=== PATIENT | male | born 1940 | race Caucasian/White ===

== ENCOUNTER 2021-03-18 20:00 | Outpatient (CLI) | payer MEDICARE, OTHER, SELFPAY | END 2021-03-18 20:01 | disposition home or self-care (01) | LOC: SLEEP 03-19 08:55 | PROVIDERS: Family Provider Nurse Practitioner Family; PCP Nurse Practitioner Family; Visit Provider Family Medicine | DX: R06.83 Snoring (principal); R53.83 Other fatigue; G47.33 Obstructive sleep apnea (adult) (pediatric); I48.91 Unspecified atrial fibrillation | CPT/HCPCS: 95811 ==

== ENCOUNTER 2021-09-30 10:35 | Inpatient (IN) | payer MEDICARE, OTHER, SELFPAY ==
[2021-09-30] VITALS (12 sets, daily range): BP systolic 131–168; BP diastolic 76–98; PULSE 75–94; RESP 15–24; TEMP 36.5–37.4; O2SAT 92–99
[2021-09-30 12:16] LABS: Basophils # 0.1 10^3/uL (0.0-0.1); Basophils % 0.4 %; Eosinophils # 0.2 10^3/uL (0.0-0.8); Eosinophils % 1.3 %; Hematocrit 50.1 % (42.0-52.0); Hemoglobin 16.3 g/dL (11.7-16.6); Lymphocytes # 1.6 10^3/uL (0.8-4.8); Mean Corpuscular HGB Conc 32.5 g/dL (30.0-36.0); Mean Corpuscular Hemoglobin 28.8 pg (28.0-34.0); Mean Corpuscular Volume 88.5 fl (80-94); Mean Platelet Volume 10.6 fL (7.4-10.4); Monocytes # 1.3 10^3/uL (0.2-0.9); Monocytes % 8.5 %; Neutrophils % 79.4 %; Nucleated Red Blood Cells % 0 %; Platelet Count 195 10^3/cmm (130-400); Red Blood Count 5.66 10^6/uL (4.1-5.3); Red Cell Distribution Width 12.2 % (12.1-15.1); White Blood Count 15.8 10^3/uL (4.0-10.0)
[2021-09-30 12:43] LABS: Alanine Aminotransferase 11 U/L (0-41); Albumin Level 4.2 g/dL (3.5-5.2); Alkaline Phosphatase 33 IU/L (40-130); Anion Gap 18.6 (5-19); Aspartate Amino Transferase 15 U/L (0-40); Blood Urea Nitrogen 13 mg/dL (8-23); Calcium 8.9 mg/dL (8.5-10.5); Carbon Dioxide 23 mmol/L (22-29); Chloride 101 mmol/L (98-107); Globulin 3.2 g/dL (1.3-4.6); Glucose 93 mg/dL (65-115); Lipase 24 U/L (13-60); Osmolality Calculated 286 mOsm/kg (285-295); Potassium 4.6 mmol/L (3.5-5.1); Sodium 138 mmol/L (136-145); Total Bilirubin 0.7 mg/dL (0.15-1.2); Total Protein 7.4 g/dL (6.6-8.7)
--- NOTE | 2021-09-30 12:53 | XR_ITS ---
WS: [id number] Exam: XR KUB portable [id number] Date/Time of Exam: 09/30/2021 12:53 PM Reason For Exam: abd pain No bowel obstruction or free air. Small amount of gas in both large and small bowel loops. Organ salma ins are obscured. Hardware in the lumbosacral spine. Partially visualized right hip replacement. XR/XR KUB portable [id number] IMPRESSION: 1. No acute abdominal finding.
--- NOTE | 2021-09-30 13:14 | CT_ITS ---
WS: [id number] Exam: CT abdomen pelvis w con* [id number] Date/Time of Exam: 09/30/2021 2:12 PM Reason For Exam: abd pain DLP: 2026.[address] scans at [facility] use at least one of these dose optimization techniques: automated e xposure control; mA and/or kV adjustment per patient size (includes targeted exams where dose is matc hed to clinical indication); or iterative reconstruction. Dependent changes in the lower lung zones. The liver, gallbladder, spleen and pancreas are unremarkab le. Small hiatal hernia. The stomach is otherwise unremarkable. Normal adrenal glands. 2 mm nonobstru cting stone in the left kidney. 7 cm right renal cyst. Subcentimeter left renal cyst. No renal obstru ction seen. The abdominal aorta is normal in caliber. The portal vein and IVC are patent. An inflamma tory mass with several loculated fluid collections noted along the inferior margin of the cecum suspi cious for acute appendicitis. The largest loculation is about 1.7 cm. No sign of free air or obvious perforation. Small bowel loops are normal in caliber. Moderate amount stool in the remaining colon. No free air. N o lymphadenopathy in the abdomen or pelvis. Intact urinary bladder. Postoperative changes in the pros pathak gland most likely secondary to TURP. Fat filled bilateral inguinal hernias. Right-sided total hi p replacement. Lumbar fusion of the L4-5 level with hardware. No destructive bone lesions are seen. CT/CT abdomen pelvis w con* [id number] IMPRESSION: 1. Inflammatory mass with several small fluid loculations identified along the inferior margin of the cecum suspicious for acute appendicitis. Fluid loculatio ns are probably small periappendiceal abscesses. No free air identified. 2. 7 cm right renal cyst. 2 mm nonobstructing stone in the left kidney. Small b ilateral inguinal hernias. Additional chronic nonacute findings. Findings were discussed by phone with Dr. Lee, the attending ER physician at 3:00 PM 09/30/2021.
--- NOTE | 2021-09-30 13:27 | W.ED.ABDPA2 ---
HPI - Abdominal Pain General: Chief Complaint: Abdominal Pain Stated Complaint: ABD PAIN Time Seen by Provider: 09/30/21 12:37 History of Present Illness: HPI narrative: 81-year-old male presents emergency room complaining of abdominal pain. His abdominal pain nausea. He has constipation week ago he took several bottles of mag citrate about 3 days ago had a large bowel movement felt things had improved. Over the last 24 to 36 hours patient had worsening abdominal pain became much worse yesterday through today when he arrived here. Denies any medication melena hematemesis coffee-ground emesis denies any dysuria urgency or frequency. History of hypertension atrial fibrillation he is on Xarelto. MD elicited complaint: abdominal pain Pertinent past history: constipation Onset (ago): week(s) (3) Pain Consistency: intermittent Location: Diffuse Severity: mild Quality: cramping Radiation: none Migration to: no migration Exacerbating factors: nothing Associated Symptoms: Reports bloating, constipation, GI cramping, nausea and poor appetite; Denies anorexia, belching, change in bowel habits, change in stool character, chills, coffee ground emesis, diarrhea, dyspepsia, dysuria, excessive flatus, fever(s), heartburn, hematochezia, hematuria, hematemesis, fecal incontinence, loose stools, melena, syncope and vomiting Review of Systems Const: Denies: fever(s) or chills ENMT: Denies: throat pain, ear or mastoid pain, nasal discharge or nasal congestion Card: Denies: syncope Resp: Denies: dyspnea, productive cough or non-productive cough GI: Reports: nausea, constipation, bloating and GI cramping; Denies: vomiting, hematemesis, coffee ground emesis, heartburn, diarrhea, belching, excessive flatus, fecal incontinence, change in bowel habits, change in stool character, hematochezia or melena : Denies: dysuria or hematuria Skin/Breast: Denies: rash or pruritus PFSH ED PFSH: Social History Smoking and tobacco status: never smoked Second hand smoke exposure: No Alcohol intake: never Desire information about alcohol rehabilitation?: No Desire information about substance/drug rehabilitation?: No History of recent travel: No Physical Exam Const: COMMON NORMALS: no acute distress GENERAL APPEARANCE: cooperative and comfortable ORIENTATION/CONSCIOUSNESS: Yes awake, Yes oriented to person, Yes oriented to place and Yes oriented to time HENMT: COMMON NORMALS: normocephalic, atraumatic, hearing grossly normal bilaterally, external ears normal, EAC's normal, TM's normal bilaterally, Normal nasal mucous membranes and turbinates present, moist oral mucous membranes and oropharynx normal HEAD & SCALP: normocephalic and atraumatic NOSE: Normal nasal mucous membranes and turbinates present EXTERNAL EAR: Yes external ears normal EXTERNAL AUDITORY CANAL: EAC's normal TYMPANIC MEMBRANE: TM's normal bilaterally Eye: COMMON NORMALS: Equal, round and reactive pupils present, EOMs intact bilaterally, conjunctivae normal and no scleral icterus CONJUNCTIVA: Yes conjunctivae normal PUPIL: Yes Equal, round and reactive pupils present Neck/C-Spine: COMMON NORMALS: full ROM, no lymphadenopathy, supple and no JVD Lymph: LYMPHATIC: no lymphadenopathy noted and no lymphedema noted Resp: COMMON NORMALS: normal respiratory effort, No retractions, No use of accessory muscles and clear to auscultation bilaterally AUSCULTATION: clear to auscultation bilaterally Cardio: COMMON NORMALS: no JVD, regular rate, regular rhythm and No murmurs present (Cardio) RATE: regular rate RHYTHM: regular rhythm GI: COMMON NORMALS: Soft to palpation and No hepatosplenomegaly present AUSCULTATION: Yes normoactive bowel sounds PALPATION: Yes Soft to palpation, No Tenderness to palpation present (GI), No Guarding due to palpation present (GI) and Yes No hepatosplenomegaly present Extremity: COMMON NORMALS: normal to inspection, capillary refill normal, no clubbing, cyanosis or edema, no calf tenderness and no pedal edema Neuro: SENSORIUM/ORIENTATION: Yes oriented to person, Yes oriented to place and Yes oriented to time Skin: COMMON NORMALS: no rashes or lesions noted GENERAL SKIN EXAM: no rashes or lesions noted Course Vital Signs: Vital signs: Vital Signs Temperature 98.1 F 09/30/21 11:11 Pulse Rate 90 09/30/21 12:58 Respiratory Rate 15 09/30/21 12:58 Blood Pressure 142/89 09/30/21 12:58 Pulse Oximetry 96 09/30/21 12:58 MDM - Abdominal Pain MDM Narrative: Medical decision making narrative: Labs and imaging reviewed. CT of the abdomen shows mild the cecum suspicious for abscessed appendicitis situs. Discussed with Dr. Caputo he will take patient to the operating room. Have reviewed with the patient as well. Lab Data: Labs: Lab Results 09/30/21 09/30/21 09/30/21 12:06 12:06 13:40 WBC 15.8 10^3/uL H 10 ^3/uL (4.0-10.0) RBC 5.66 10^6/uL H 10 ^6/uL (4.1-5.3) Hgb 16.3 g/dL g/dL (11.7-16.6) Hct 50.1 % % (42.0-52.0) MCV 88.5 fl fl (80-94) MCH 28.8 pg pg (28.0-34.0) MCHC 32.5 g/dL g/dL (30.0-36.0) RDW 12.2 % % (12.1-15.1) Plt Count 195 10^3/cmm 10^3 /cmm (130-400) MPV 10.6 fL H fL (7.4-10.4) Neut % (Auto) 79.4 % % Lymph % (Auto) 10.0 % % [place] % (Auto) 8.5 % % Eos % (Auto) 1.3 % % Baso % (Auto) 0.4 % % Neut # (Auto) 12.50 10^3/uL H 1 0^3/uL (1.8-7.7) Lymph # (Auto) 1.6 10^3/uL 10^3/ uL (0.8-4.8) [place] # (Auto) 1.3 10^3/uL H 10^ 3/uL (0.2-0.9) Eos # (Auto) 0.2 10^3/uL 10^3/ uL (0.0-0.8) Baso # (Auto) 0.1 10^3/uL 10^3/ uL (0.0-0.1) Nucleated RBC % (a uto) 0 % % Nucleated RBCs # 0.0 /100WBC /100W BC Sodium 138 mmol/L mmol/L (136-145) Potassium 4.6 mmol/L mmol/L (3.5-5.1) Chloride 101 mmol/L mmol/L (98-107) Carbon Dioxide 23 mmol/L mmol/L (22-29) Anion Gap 18.6 (5-19) BUN 13 mg/dL mg/dL (8-23) Creatinine 0.9 mg/dL mg/dL (0.7-1.2) GFR Calculation Not Reportable Glucose 93 mg/dL mg/dL (65-115) Calculated Osmolal ity 286 mOsm/kg mOsm/ kg (285-295) Calcium 8.9 mg/dL mg/dL (8.5-10.5) Total Bilirubin 0.7 mg/dL mg/dL (0.15-1.2) AST 15 U/L U/L (0-40) ALT 11 U/L U/L (0-41) Alkaline Phosphata se 33 IU/L L IU/L (40-130) Total Protein 7.4 g/dL g/dL (6.6-8.7) Albumin 4.2 g/dL g/dL (3.5-5.2) Globulin 3.2 g/dL g/dL (1.3-4.6) Lipase 24 U/L U/L (13-60) Urine Color Yellow (Yellow) Urine Appearance Clear (CLEAR) Urine pH 5 (5-7) Ur Specific Gravit y 1.020 (1.005-1.030) Urine Protein 1+ H (Negative) Urine Glucose (UA) Norm (Normal) Urine Ketones 1+ H (Negative) Urine Blood Trace H (Negative) Urine Nitrate Negative (Negative) Urine Bilirubin 1+ H (Negative) Urine Urobilinogen Norm mg/dL mg/dL (Negative) Ur Leukocyte Nickie ase Trace (Negative) Urine RBC None /hpf /hpf (0-2) Urine WBC 0-4 /hpf H /hpf (0-5) Ur Squamous Epith Cells 0-4 /hpf H /hpf (0-5) Amorphous Sediment Not Reportable Urine Bacteria None /hpf /hpf (NONE) Urine Mucus 2+ /hpf /hpf Discharge Plan Discharge Condition: Stable Prescriptions: No Action gabapentin 300 mg capsule 600 mg PO BID RF: 0 lisinopril 20 mg tablet 40 mg PO QAM RF: 0 lovastatin 10 mg tablet 10 mg PO QAM RF: 0 Xarelto 20 mg tablet 20 mg PO QAM RF: 0 amlodipine 5 mg tablet 5 mg PO QAM RF: 0 Aleve 220 mg Tablet 440 mg PO BID PRN (Reason: Pain) RF: 0 Coding Level of Care Code ED Software Engineer Developer for Chg Fwd Exam Comprehensive
[2021-09-30 14:24] LABS: Bilirubin Urine 1+ (Negative); Blood Urine Trace (Negative); Glucose Urine UA Norm (Normal); Ketones Urine 1+ (Negative); Nitrate Urine Negative (Negative); Protein Urine 1+ (Negative); Urine Appearance Clear (CLEAR); Urine Color Yellow (Yellow); pH Urine 5 (5-7)
[2021-09-30 14:25] LABS: Add Urine Culture? No; Add Urine Microscopic? YES; Leukocyte Esterase Urine Trace (Negative); Mucus Urine 2+ /hpf; Squamous Epithelial Cell Urine 0-4 /hpf (0-5); Urobilinogen Urine Norm (Negative); WBC Urine 0-4 /hpf (0-5)
[2021-09-30] MEDS: iohexol 300 mg/mL 100 mL Btl IV (14:29)
[2021-09-30] MEDS: piperacillin-tazobactam 3.375 GM in sodium chloride 0.9% (plus) 50 ML IV ×2 (15:34→21:18)
--- NOTE | 2021-09-30 15:36 | P.HP_ITS ---
Providers/Chief Complaint Admitting Physician: General Surgery Angel Houston MD Primary Care Provider: Piero Day Chief Complaint: ABD PAIN History of Present Illness Wesly Eldridge is a 81 year old male who says that he was feeling constipated last week following hip surgery a couple of months ago with the associated postoperative decreased activity and pain medication. He took magnesium citrate on and Thursday (3-4 days ago) and had multiple bowel movements. He said yesterday he developed some generalized abdominal pain and points to an area just above his umbilicus. He lost his appetite today and came into the emergency department. At that time he noticed that when the physician was palpating his abdomen he had his most tender spot in the right lower quadrant. A CAT scan showed an inflammatory process in the right lower quadrant most consistent with appendicitis. There is a significant fluid collection, making the radiologist suspect there is a phlegmon with a perforation. The patient denies any fevers or chills. He says he has not had any changes in his bowel habits recently other than the constipation as mentioned. He says he had a colonoscopy that was normal 4?5 years ago. Review of Systems Const: Denies: fever(s) GI: Reports: abdominal pain, nausea and constipation Musc: Reports: neck pain (Chronic) and back pain (Chronic) Medications/Allergies Home Medications Medication Instructions Recorded Confirmed Last Taken Type gabapentin 300 mg capsule 600 mg PO BID cap 01/05/20 09/30/21 09/30/21 05:00 History amlodipine 5 mg tablet 5 mg PO QAM 09/26/21 09/30/21 09/30/21 05:00 History lisinopril 20 mg tablet 40 mg PO QAM 09/26/21 09/30/21 09/30/21 05:00 History lovastatin 10 mg tablet 10 mg PO QAM 09/26/21 09/30/21 09/30/21 05:00 History rivaroxaban 20 mg tablet 20 mg PO QAM 09/26/21 09/30/21 09/30/21 05:00 History naproxen sodium [Aleve] 440 mg PO BID PRN 09/30/21 09/30/21 09/29/21 History Allergies Allergy/AdvReac Type Severity Reaction Status Date / Time No Known Allergies Allergy Verified 09/30/21 13:09 PFSH Acute PFSH: Medical History (Updated 09/30/21 @ 15:40 by Angel Houston MD) Atrial fibrillation Chronic pain Neck / back Hypercholesterolemia Hypertension Surgical History (Updated 09/30/21 @ 15:44 by Angel Houston MD) History of right hip replacement Previous back surgery Status post knee surgery Bilateral Social History Smoking and tobacco status: never smoked Second hand smoke exposure: No Alcohol intake: never Desire information about alcohol rehabilitation?: No Desire information about substance/drug rehabilitation?: No History of recent travel: No Vitals/I&O/Wt Last Vital Signs Temp 98.1 F 09/30/21 11:11 Pulse 90 09/30/21 12:58 Resp 15 09/30/21 12:58 BP 142/89 09/30/21 12:58 Pulse Ox 96 09/30/21 12:58 Weight last 48 hrs Weight 255 lb Physical Exam Narrative: EXAM NARRATIVE: The patient was encountered in the emergency department. He appears to not feel well but is in no acute distress. The pupils are equal. No carotid bruits are heard. The lungs are clear. The heart seems irregularly irregular. The abdomen is moderately obese. There is a fat- containing umbilical hernia which is nontender. Rovsing's sign is negative. The patient has his maximum point of tenderness over McBurney's point in the right lower quadrant. No obvious masses palpated but deep palpation was not carried out due to the level of the patient's tenderness in the region. The extremities reveal no edema. Neurologically the patient appears to be grossly intact. Data : 09/30/21 12:06 09/30/21 12:06 CT Abd/Pel: Radiologist's impression: CT abdomen/pelvis 09/30/2021 IMPRESSION: 1. Inflammatory mass with several small fluid loculations identified along the inferior margin of the cecum suspicious for acute appendicitis. Fluid loculations are probably small periappendiceal abscesses. No free air identified. 2. 7 cm right renal cyst. 2 mm nonobstructing stone in the left kidney. Small bilateral inguinal hernias. Additional chronic nonacute findings. A&P Assessment and plan (1) Acute appendicitis with appendiceal abscess: I discussed appendicitis with the patient in some detail. He definitely has some fluid collecting in the right lower quadrant and I made him aware his appendix may or may not already be perforated. We discussed both surgical and medical methods of management. Surgical risks including bleeding (the patient last took his Xarelto this morning), infection, internal organ injury, etc. were all gone over. I made him aware that we could certainly start laparoscopically but there is a good chance he may have to have an open procedure, particularly if there is a established phlegmon or if there is widespread contamination from a perforation. He seems to understand and agrees to proceed with surgery today. The patient has been n.p.o. today. I am going to make arrangements for a laparoscopic or possibly open procedure for an appendectomy today. Status: Acute Attestations Medical Necessity Statement*: It is difficult to know if the patient's appendix has perforated. Based on my medical assessment, presenting symptoms and consideration of the scope of surgical therapy, I expect this patient will require treatment in the hospital for a period of time spanning less than 2 m idnights if his appendicitis is uncomplicated, and is therefore being placed in observation status. His status will be changed to inpatient if a larger procedure is necessary today. Coding Level of Care Code Acute Dance Artist for Shira De Anda Diagnoses Acute appendicitis with appendiceal abscess K35.33
--- NOTE | 2021-09-30 15:48 | ANES.PREANE2 ---
Pre-Anesthetic Assessment Pre-Anesthetic Assessment: Height/Weight: Height 1.91 m Weight 115.666 kg Temp Pulse Resp BP Pulse Ox 98.1 F 90 15 142/89 96 09/30/21 11:11 09/30/21 12:58 09/30/21 12:58 09/30/21 12:58 09/30/21 12:58 Preop Diagnosis: Appendicitis Proposed Procedure: Operation Date: 09/30/21 16:15 Proposed Procedures p Laparoscopic Appendectomy(Not Applicable) - Angel Houston MD Familial anesthetic complications: PONV Was Beta Catarina taken within 24 hours: N/A Was Clonidine taken within 24 hours: N/A Last intake: > 8 ghrs Social: Social History: No alcohol and No tobacco Exam: Pre-Anes Outpt Exam: alert, oriented x 3, clear to auscultation bilaterally and regular rate & rhythm Airway: Cervical ROM: WNL MP: 2 Dentition: Full CV/HEM: CV/HEM: Afib and HTN Metabolic: Metabolic: Hyperlipidemia Anesthetic Plan: ASA status: 3 Anesthesia: General Risk of > 500 ml blood loss (7ml/kg in children): No PFSH Anesthesia PFSH: Medical History (Updated 09/30/21 @ 15:40 by Angel Houston MD) Atrial fibrillation Chronic pain Neck / back Hypercholesterolemia Hypertension Surgical History (Updated 09/30/21 @ 15:44 by Angel Houston MD) History of right hip replacement Previous back surgery Status post knee surgery Bilateral Social History Smoking and tobacco status: never smoked Second hand smoke exposure: No Alcohol intake: never Desire information about alcohol rehabilitation?: No Desire information about substance/drug rehabilitation?: No History of recent travel: No Data Anesthesia CBC & Chem 7: 09/30/21 12:06 09/30/21 12:06 Other Labs: Laboratory Results - last 48 hr 09/30/21 09/30/21 09/30/21 12:06 12:06 13:40 WBC 15.8 H RBC 5.66 H Hgb 16.3 Hct 50.1 MCV 88.5 MCH 28.8 MCHC 32.5 RDW 12.2 Plt Count 195 MPV 10.6 H Neut % (Auto) 79.4 Lymph % (Auto) 10.0 [place] % (Auto) 8.5 Eos % (Auto) 1.3 Baso % (Auto) 0.4 Neut # (Auto) 12.50 H Lymph # (Auto) 1.6 [place] # (Auto) 1.3 H Eos # (Auto) 0.2 Baso # (Auto) 0.1 Nucleated RBC % (auto) 0 Nucleated RBCs # 0.0 Sodium 138 Potassium 4.6 Chloride 101 Carbon Dioxide 23 Anion Gap 18.6 BUN 13 Creatinine 0.9 GFR Calculation Not Reportable Glucose 93 Calculated Osmolality 286 Calcium 8.9 Total Bilirubin 0.7 AST 15 ALT 11 Alkaline Phosphatase 33 L Total Protein 7.4 Albumin 4.2 Globulin 3.2 Lipase 24 Urine Color Yellow Urine Appearance Clear Urine pH 5 Ur Specific [place] 1.020 Urine Protein 1+ H Urine Glucose (UA) Norm Urine Ketones 1+ H Urine Blood Trace H Urine Nitrate Negative Urine Bilirubin 1+ H Urine Urobilinogen Norm Ur Leukocyte Esterase Trace Urine RBC None Urine WBC 0-4 H Ur Squamous Epith Cells 0-4 H Amorphous Sediment Not Reportable Urine Bacteria None Urine Mucus 2+ Cardiac Studies: No Data to Display
[2021-09-30] MEDS: metroNIDAZOLE IV 500 MG/100 ML PREMIX 100 MG IV (16:20)
--- NOTE | 2021-09-30 16:59 | PM.OP ---
Operative Report Date of procedure: September 30, 2021 Pre-op Diagnosis: Acute appendicitis. Post-op Diagnosis: Acute appendicitis with localized abscess. Procedure Done: Laparoscopic appendectomy. Specimens removed/disposition: Appendix. Surgeon: Angel Houston Anesthesia: General Estimated blood loss (mL): 10 Complications: None. Condition: stable Disposition: PACU Procedure: The patient was brought to the Operating Room and was placed in a supine position on the operating room table. General endotracheal anesthesia was induced. The abdomen was prepped and draped in a sterile fashion. A small vertical incision was carried out in the superior aspect of the umbilicus over the known umbilical hernia. Blunt dissection was carried out down to the fascia, where the fat coming through the defect was excised using cautery.. A stay suture of 0 Vicryl was placed on either side of the midline defect and the [place] port was placed directly into the peritoneal cavity through the hernia defect and was held in place with the inflatable balloon. The peritoneal cavity was insufflated with carbon dioxide. The laparoscope was used to inspect the peritoneal cavity. The patient had a considerable amount of intraperitoneal fat, but no gross abnormalities were initially noted. Two 5-millimeter ports were placed in the left lower quadrant under direct vision. The patient was tilted in a Trendelenburg position and slightly to the left side. A laparoscopic [place] was used to elevate the cecum and the appendix was identified. The appendix was somewhat densely adhesed to the posterior peritoneum behind a loop of ileum. The appendix was eventually freed using blunt dissection and hydrodissection, and was then elevated. The patient had a perforation in the distal appendix with some hemorrhagic exudate present. There was only a very small amount of purulence involved in the small localized abscess cavity. The mesoappendix was divided using cautery to maintain hemostasis at the base of the appendix. The base of the appendix appeared healthy and was divided using an endoscopic stapler. The appendix was removed from the peritoneal cavity after being placed in a laparoscopic bag. The right lower quadrant and pelvis were extensively irrigated. The staple line on the cecum was identified and appeared to be in good condition. The [place] port was removed from the umbilical site and the stay sutures of Vicryl were tied to each other at the umbilicus, closing the previous hernia defect so that it was airtight. A final round of irrigation was carried out in the right lower quadrant and the pelvis. No ongoing problems were seen. The remaining ports were removed from the abdominal wall as the pneumoperitoneum was evacuated. All skin incisions were closed using inverted interrupted sutures of 4-0 Vicryl. Benzoin and Steri-Strips were placed over the incisions and Band-Aids followed. The patient was taken to the Recovery Room in stable condition postoperatively.
[2021-09-30] MEDS: D5-NS 0.45% + KCL 20 mEq 20 MEQ/1,000 ML BAG 100 MEQ IV (18:46)
[2021-09-30] MEDS: levalbuterol 0.63 mg/3 mL Neb INHALATION (20:23)
[2021-09-30] MEDS: famotidine 20 mg/2 mL INJ IVP (21:35)
[2021-10-01] VITALS (14 sets, daily range): BP systolic 106–153; BP diastolic 58–81; PULSE 70–102; RESP 18–20; TEMP 36.3–36.8; O2SAT 90–95
[2021-10-01] MEDS: ondansetron 2 mg/ML SDV 2 mL 4 MG IVP (03:10)
[2021-10-01] MEDS: morphine 4 mg/mL SDV 1 mL IVP (03:13)
[2021-10-01] MEDS: D5-NS 0.45% + KCL 20 mEq 20 MEQ/1,000 ML BAG 100 MEQ IV ×2 (03:22→14:01)
--- NOTE | 2021-10-01 03:55 | PC.NURSE ---
PAIN Woke up with increased abd pain. Sat up on the side of the bed and became lightheaded and diaphoretic. Also became nauseated without emesis. Had been declining all offers of pain med previous to this even with encouragement to take something. Kept saying he didn't need anything for pain and that the pain meds cause him constipation. Medicated now with IV Morphine & Zofran with relief obtained. States feeling much better. Has passed some gas this morning. Abdomen is tender with distention noted. Large bandaid to umbilicus incision and X2 smaller bandaids to LLQ abdomen incisions. IV nfusing at 100ml/hr rate and receiving IV antibiotics.
[2021-10-01] MEDS: piperacillin-tazobactam 3.375 GM in sodium chloride 0.9% (plus) 50 ML IV ×3 (05:00→22:03)
[2021-10-01] MEDS: HYDROcodone-acetaminophen 5-325 mg Tablet PO ×3 (05:13→14:14)
--- NOTE | 2021-10-01 05:58 | PC.NURSE ---
SHIFT SUMMARY Rested after receiving Morphine earlier for pain and stated it really helped. Has c/o alot of gas. Sat up on side of bed and was going to ambulate this morning but decided he wasn't quite ready for that yet. Discussed with him he needs to be ambulating soon and this will help with the gas. Was medicated this am with po Hydrocodone. No c/o further nausea. IV infusing at 100ml/hr rate and is receiving IV antibiotics as ordered. Voiding per urinal.
[2021-10-01 06:19] LABS: Basophils % 0.1 %; Hemoglobin 12.1 g/dL (11.7-16.6); Lymphocytes # 0.7 10^3/uL (0.8-4.8); Lymphocytes % 3.5 %; Mean Corpuscular HGB Conc 31.8 g/dL (30.0-36.0); Mean Corpuscular Hemoglobin 29.1 pg (28.0-34.0); Mean Corpuscular Volume 91.3 fl (80-94); Mean Platelet Volume 10.7 fL (7.4-10.4); Monocytes # 0.9 10^3/uL (0.2-0.9); Monocytes % 4.3 %; Neutrophils # 18.93 10^3/uL (1.8-7.7); Neutrophils % 91.5 %; Nucleated Red Blood Cells % 0 %; Platelet Count 198 10^3/cmm (130-400); Red Blood Count 4.16 10^6/uL (4.1-5.3); Red Cell Distribution Width 12.3 % (12.1-15.1); White Blood Count 20.7 10^3/uL (4.0-10.0)
[2021-10-01 06:36] LABS: Anion Gap 17.7 (5-19); Blood Urea Nitrogen 18 mg/dL (8-23); Calcium 7.6 mg/dL (8.5-10.5); Carbon Dioxide 19 mmol/L (22-29); Chloride 101 mmol/L (98-107); Glucose 256 mg/dL (65-115); Osmolality Calculated 287 mOsm/kg (285-295); Potassium 4.7 mmol/L (3.5-5.1); Sodium 133 mmol/L (136-145)
--- NOTE | 2021-10-01 07:43 | PM.PN ---
Subjective Subjective: Interval history: The patient says he feels better today but he is very bloated. He is not passing flatus and feels like he needs to. He has not been up ambulating yet. Vitals/I&O/Wt Last Vital Signs Temp 97.9 F 10/01/21 04:00 Pulse 74 10/01/21 04:00 Resp 19 H 10/01/21 04:00 BP 114/68 10/01/21 04:00 Pulse Ox 94 10/01/21 04:00 09/30/21 10/01/21 10/01/21 22:59 06:59 14:59 Intake Total 210 / 1480 1270 / 1480 Output Total 410 / 410 Balance -200 / 1070 1270 / 1070 Weight last 48 hrs Weight 255 lb Physical Exam Narrative: EXAM NARRATIVE: Bowel sounds are present, but he is quite distended. The laparoscopic incisions look okay. Data : 10/01/21 05:40 10/01/21 05:40 A&P Assessment and plan (1) Acute appendicitis with appendiceal abscess: Status post laparoscopic appendectomy on 09/30/2021. The patient's white blood cell count is but I suspect this is reactive following surgery for his appendix which was locally perforated. Continue IV antibiotics. Ambulate. Status: Acute Attestations Medical Necessity Statement*: The patient will be converted to inpatient status for recovery following surgery for perforated appendicitis. Coding Level of Care Code Acute Manager Treasury for Shira De Anda Diagnoses Acute appendicitis with appendiceal abscess K35.33
[2021-10-01] MEDS: levalbuterol 0.63 mg/3 mL Neb INHALATION ×4 (08:17→20:23)
[2021-10-01] MEDS: rivaroxaban 10 mg Tablet 20 MG PO (09:10)
[2021-10-01] MEDS: atorvastatin 40 mg Tablet 20 MG PO (09:11)
[2021-10-01] MEDS: gabapentin 300 mg Capsule 600 MG PO ×2 (09:11→22:04)
[2021-10-01] MEDS: polyethylene glycol 3350 Pkt 17 gm PO (09:12)
[2021-10-01] MEDS: famotidine 20 mg/2 mL INJ IVP ×2 (09:12→22:04)
[2021-10-01] MEDS: ketorolac 30 mg/mL INJ 15 MG IVP (09:15)
--- NOTE | 2021-10-01 10:38 | XR_ITS ---
WS: [id number] Exam: XR KUB [id number] Date/Time of Exam: 10/01/2021 10:41 AM Reason For Exam: Abdominal distention status post surgery Comparison 09/30/2021. There is a moderate amount of gas in both large and small bowel loops suggesting adynamic or postop i leus. No bowel obstruction noted. Contrast noted in the urinary bladder. No obvious pneumoperitoneum. There is hardware in the lower lumbar spine. Organ margins are obscured. XR/XR KUB 76117 IMPRESSION: 1. Moderate amount of large and small bowel gas probably representing postop il eus.
[2021-10-01] MEDS: simethicone 80 mg Chew PO (14:00)
--- NOTE | 2021-10-01 19:49 | PC.NURSE ---
Shift report received from Andreea DUENAS. Patient up in chair/ at bedside. Denies pain at this time. Patient c/o of hiccups. Patient states he has belching but not passing any gas. IV patent and infusing NS/K20 at 100mL/hr. No other needs voiced at this time.
[2021-10-02] VITALS (13 sets, daily range): BP systolic 126–151; BP diastolic 61–86; PULSE 73–96; RESP 16–18; TEMP 36.4–36.7; O2SAT 89–97
[2021-10-02] MEDS: D5-NS 0.45% + KCL 20 mEq 20 MEQ/1,000 ML BAG 100 MEQ IV ×3 (00:23→21:21)
[2021-10-02] MEDS: piperacillin-tazobactam 3.375 GM in sodium chloride 0.9% (plus) 50 ML IV ×3 (06:01→21:10)
[2021-10-02 06:14] LABS: Basophils # 0.1 10^3/uL (0.0-0.1); Basophils % 0.2 %; Hematocrit 35.4 % (42.0-52.0); Hemoglobin 11.4 g/dL (11.7-16.6); Lymphocytes # 1.3 10^3/uL (0.8-4.8); Lymphocytes % 5.1 %; Mean Corpuscular HGB Conc 32.2 g/dL (30.0-36.0); Mean Corpuscular Volume 90.1 fl (80-94); Mean Platelet Volume 10.6 fL (7.4-10.4); Monocytes # 1.6 10^3/uL (0.2-0.9); Monocytes % 6.3 %; Neutrophils # 22.59 10^3/uL (1.8-7.7); Neutrophils % 87.7 %; Nucleated Red Blood Cells % 0 %; Platelet Count 240 10^3/cmm (130-400); Red Blood Count 3.93 10^6/uL (4.1-5.3); Red Cell Distribution Width 12.5 % (12.1-15.1); White Blood Count 25.8 10^3/uL (4.0-10.0)
[2021-10-02 06:33] LABS: Anion Gap 18.7 (5-19); Blood Urea Nitrogen 23 mg/dL (8-23); Calcium 8.2 mg/dL (8.5-10.5); Carbon Dioxide 20 mmol/L (22-29); Chloride 101 mmol/L (98-107); Glucose 135 mg/dL (65-115); Osmolality Calculated 286 mOsm/kg (285-295); Potassium 4.7 mmol/L (3.5-5.1); Sodium 135 mmol/L (136-145)
[2021-10-02] MEDS: levalbuterol 0.63 mg/3 mL Neb INHALATION ×4 (07:40→20:06)
--- NOTE | 2021-10-02 07:53 | PM.PN ---
Subjective Subjective: Interval history: I feel a lot better today. The patient still has not passed any flatus. He does not feel quite as distended, however. He says he is urinating a lot. He is not having any difficulty breathing. He reiterates that he has been having problems with bowel movements ever since he had his hip surgery back in June. He recalls now that his last colonoscopy in [place] was at least 5 years ago but was normal. Vitals/I&O/Wt Last Vital Signs Temp 98.1 F 10/02/21 04:00 Pulse 82 10/02/21 07:48 Resp 17 10/02/21 07:40 BP 147/86 10/02/21 07:40 Pulse Ox 93 10/02/21 07:40 10/01/21 10/02/21 10/02/21 22:59 06:59 14:59 Intake Total 290 / 3370 1650 / 3370 Output Total 525 / 525 Balance 290 / 2845 1125 / 2845 Weight last 48 hrs Weight 255 lb Physical Exam Narrative: EXAM NARRATIVE: The patient remains afebrile. Blood pressure is stable and the heart rate is within normal limits. The abdomen remains somewhat distended but maybe not quite as tensely as yesterday morning. The patient still has some bowel sounds present but they may be a little hypoactive. The surgical incisions look good. Data : 10/02/21 04:50 10/02/21 04:50 A&P Assessment and plan (1) Acute appendicitis with appendiceal abscess: Status post laparoscopic appendectomy for acute appendicitis with localized abscess on 09/30/2021. The patient subjectively feels much better today, but his white blood cell count remains significantly elevated. He remains on Zosyn. I discussed getting away from the intravenous morphine today and he says he is ready for that. He says he does not really feel like he needs a lot of pain medication anymore. Continue ambulation. Recheck labs tomorrow morning. The patient's been having bowel issues ever since his hip surgery several months ago. His recent CAT scan did not reveal any obvious/significant colon abnormalities other than his appendicitis. I told the patient that even if he improves but is still having some bowel issues, another colonoscopy is certainly something we can consider down the road. Status: Acute Attestations Medical Necessity Statement*: Patient requires continued inpatient care/intravenous antibiotics following surgery for perforated appendicitis. Coding Level of Care Code Acute Technical Communicator for [facility] Fwd Diagnoses Acute appendicitis with appendiceal abscess K35.33
--- NOTE | 2021-10-02 10:12 | PC.CHAP ---
Pastoral Care Encounter/Spiritual Assessment Type of Contact [] Declined dining room busser visit [] Patient/Family/Request visit [] Outpatient visit [] Follow-up visit [] Physician referral [] Code/Alert [] Routine visit [] Staff referral [] Actively dying [] Patient sleeping [] Family support [] [] Out of room [] Palliative care [] [] Receiving care in room [] Pre-surgical visit [] Trauma [] Long length of stay [] ICU visit [] Other: Relational/Emotional Strength [x] Patient feels connected with others/family/visitors/staff [] Distress [] Loneliness/isolation [] Abandonment Spirituality of Patient [x] Person of Lita [x] Attends Anabaptist of their Lita [x] Believes in Prayer [] Reads Bible or Amish materials [] There are Spiritual issues to be addressed Vending Machine Collector Interventions [x] Prayer x[] Active listening [] Non-anxious presence [] Spiritual/emotional support [] Crisis/trauma care [] Spiritual counseling [] Bereavement support [] Provided bereavement packet [] Provided Bible/devotional materials [] Provided toy/stuffed animal, coloring book to patient or family member [] Provided Communion [] Anointing/Vanzant [] Salvation [x] Completed spiritual assessment [] Other: Impact on Illness or Injury [] Angry [] Fearful [] Anxious [] Often cries [] Exhaustion [] Unable to work [] Unable to attend roman catholic [] Unable to walk/stand [] Unable to read [] Unable to drive [] Unable to eat/drink [] Unable to sleep [] Unable to be with family [] Patient intubated [] Other: Summary Time spent with patient 15 min
[2021-10-02] MEDS: gabapentin 300 mg Capsule 600 MG PO ×2 (10:27→19:56)
[2021-10-02] MEDS: polyethylene glycol 3350 Pkt 17 gm PO (10:27)
[2021-10-02] MEDS: amlodipine 5 mg Tablet PO (10:28)
[2021-10-02] MEDS: atorvastatin 40 mg Tablet 20 MG PO (10:29)
[2021-10-02] MEDS: rivaroxaban 10 mg Tablet 20 MG PO (10:29)
[2021-10-02] MEDS: lisinopril 20 mg Tablet 40 MG PO (10:29)
[2021-10-02] MEDS: famotidine 20 mg/2 mL INJ IVP ×2 (10:52→20:24)
--- NOTE | 2021-10-02 10:53 | PC.NURSE ---
patient reports he is passing gas
[2021-10-02] MEDS: HYDROcodone-acetaminophen 5-325 mg Tablet PO (14:05)
--- NOTE | 2021-10-02 19:01 | PC.NURSE ---
Shift report received from Donna DUENAS. Patient was up ambulating with in vazquez. Patient denies pain or discomfort. IV patent /infusing NS20K at 100mL/hr. No needs voiced at this time.
[2021-10-02] MEDS: metroNIDAZOLE 500 MG Tablet PO (20:24)
[2021-10-03] VITALS: BP 145/72; PULSE 74; RESP 16; TEMP 36.4; O2SAT 93
--- NOTE | 2021-10-03 01:51 | PC.NURSE ---
patient resting at this time/ no s/s of pain or discomfort
[2021-10-03 02:40] LABS: Basophils % 0.2 %; Eosinophils # 0.1 10^3/uL (0.0-0.8); Eosinophils % 1.1 %; Hematocrit 28.1 % (42.0-52.0); Hemoglobin 9.2 g/dL (11.7-16.6); Lymphocytes # 1.5 10^3/uL (0.8-4.8); Lymphocytes % 11.2 %; Mean Corpuscular HGB Conc 32.7 g/dL (30.0-36.0); Mean Corpuscular Volume 88.6 fl (80-94); Mean Platelet Volume 10.3 fL (7.4-10.4); Monocytes # 1.2 10^3/uL (0.2-0.9); Monocytes % 8.9 %; Neutrophils # 10.23 10^3/uL (1.8-7.7); Neutrophils % 78.1 %; Nucleated Red Blood Cells % 0 %; Platelet Count 182 10^3/cmm (130-400); Red Blood Count 3.17 10^6/uL (4.1-5.3); Red Cell Distribution Width 12.5 % (12.1-15.1); White Blood Count 13.1 10^3/uL (4.0-10.0)
[2021-10-03 03:14] LABS: Blood Urea Nitrogen 15 mg/dL (8-23); Carbon Dioxide 22 mmol/L (22-29); Chloride 105 mmol/L (98-107); Glucose 109 mg/dL (65-115); Osmolality Calculated 287 mOsm/kg (285-295); Sodium 138 mmol/L (136-145)
[2021-10-03 04:00] VITALS: BP 144/73; PULSE 81; RESP 17; TEMP 36.5; O2SAT 92
[2021-10-03] MEDS: piperacillin-tazobactam 3.375 GM in sodium chloride 0.9% (plus) 50 ML IV (05:15)
--- NOTE | 2021-10-03 06:51 | P.PN_ITS ---
Subjective Subjective: Interval history: The patient says he continued to pass a lot of flatus during the night. Vitals/I&O/Wt Last Vital Signs Temp 97.7 F 10/03/21 04:00 Pulse 81 10/03/21 04:00 Resp 17 10/03/21 04:00 BP 144/73 10/03/21 04:00 Pulse Ox 92 10/03/21 04:00 10/02/21 10/02/21 10/03/21 14:59 22:59 06:59 Intake Total 2370 / 3830 1410 / 3830 50 / 3830 Output Total 700 / 2275 1575 / 2275 Balance 2370 / 1555 710 / 1555 -1525 / 1555 Physical Exam Narrative: EXAM NARRATIVE: Bowel sounds are present. Laparoscopic incisions look good. Data : 10/03/21 01:58 10/03/21 01:58 A&P Assessment and plan (1) Acute appendicitis with appendiceal abscess: Status post laparoscopic appendectomy for acute appendicitis with localized abscess on 09/30/2021. The patient continues to feel well. White blood cell count is finally deferve scing. GI soft diet. Continue antibiotics, but is possible the patient may be going home later today. Status: Acute Attestations Medical Necessity Statement*: Patient remains in inpatient status for intravenous antibiotics and convalescence following surgery for perforated appendicitis. Coding Level of Care Code Acute Set Up Mold Technician for [facility]ira De And[facility] Diagnoses Acute appendicitis with appendiceal abscess K35.33
[2021-10-03] MEDS: levalbuterol 0.63 mg/3 mL Neb INHALATION (07:26)
[2021-10-03 07:28] VITALS: PULSE 94; RESP 16; O2SAT 95
[2021-10-03 07:32] VITALS: PULSE 90; RESP 16; O2SAT 95
[2021-10-03] MEDS: gabapentin 300 mg Capsule 600 MG PO (09:10)
[2021-10-03] MEDS: rivaroxaban 10 mg Tablet 20 MG PO (09:11)
[2021-10-03] MEDS: amlodipine 5 mg Tablet PO (09:11)
[2021-10-03] MEDS: metroNIDAZOLE 500 MG Tablet PO (09:11)
[2021-10-03] MEDS: lisinopril 20 mg Tablet 40 MG PO (09:11)
[2021-10-03] MEDS: atorvastatin 40 mg Tablet 20 MG PO (09:11)
[2021-10-03] MEDS: famotidine 20 mg/2 mL INJ IVP (09:11)
[2021-10-03] MEDS: polyethylene glycol 3350 Pkt 17 gm PO (09:12)
--- NOTE | 2021-10-03 09:19 | PM.DCS ---
Discharge Providers Date of Admission: 10/01/21 07:54 Date of Discharge: October 03, 2021 Attending Provider at Admission: Angel Houston MD Attending Provider at Discharge: Angel Houston MD Primary Care Provider: Piero Day Diagnoses at Discharge Discharge Diagnosis (1) Acute appendicitis with appendiceal abscess: Status: Acute Reason for Visit Reason for Visit: ABD PAIN Hospital Course Hospital Course This is a 81-year-old white male who presented to the emergency room with abdominal pain. A CAT scan showed changes consistent with acute appendicitis with probable early rupture/abscess formation. The patient was taken to the operating room the same day and a laparoscopic appendectomy was performed. Clinically, it did appear as if there was a localized rupture with some serosanguineous fluid surrounding the appendix but minimal purulence. Postoperatively the patient was kept on broad-spectrum antibiotics. He initially exhibited signs and symptoms of an ileus but eventually his bowel function returned. He was advanced to a soft diet which he tolerated well. By 10/03/2001 the patient was doing well and was anxious to go home. He had remained afebrile throughout his hospital stay. His white blood cell count had become more elevated postoperatively but was defervescing very quickly at the time of discharge. He was instructed with respect to wound care, activity limitations, diet, etc. The patient indicated that he did not need any pain medication postoperatively at home. Arrangements will be made for the patient to follow-up in the office as an outpatient. Physical Exam Narrative: EXAM NARRATIVE: Vital signs are stable. The abdomen reveals good bowel sounds and is reasonably soft. All of the laparoscopic incisions look good. Discharge Data Data Completed and Pending: Completed Studies During Hospitalization Category Date Time Status CT abdomen pelvis w con* [id number] Stat Cat Scan 09/30/21 13:14 Completed XR KUB 75127 Rout ine Exams 10/01/21 10:38 Completed XR KUB portable 7 [id number] Stat Exams 09/30/21 12:53 Completed Pending at discharge Category Date Time Status Pathology: Surgic al [PTH] Routine Pth 09/30/21 17:12 Received Labs from last 24 hours 10/03/21 10/03/21 01:58 01:58 WBC 13.1 H RBC 3.17 L Hgb 9.2 L Hct 28.1 L MCV 88.6 MCH 29.0 MCHC 32.7 RDW 12.5 Plt Count 182 MPV 10.3 Neut % (Auto) 78.1 Lymph % (Auto) 11.2 [place] % (Auto) 8.9 Eos % (Auto) 1.1 Baso % (Auto) 0.2 Neut # (Auto) 10.23 H Lymph # (Auto) 1.5 [place] # (Auto) 1.2 H Eos # (Auto) 0.1 Baso # (Auto) 0.0 Nucleated RBC % (a uto) 0 Nucleated RBCs # 0.0 Sodium 138 Potassium 5.0 Chloride 105 Carbon Dioxide 22 Anion Gap 16.0 BUN 15 Creatinine 1.0 GFR Calculation Not Reportable Glucose 109 Calculated Osmolal ity 287 Calcium 8.0 L Vitals: Last Vital Signs Temp 97.7 F 10/03/21 04:00 Pulse 90 10/03/21 07:32 Resp 16 10/03/21 07:32 BP 144/73 10/03/21 04:00 Pulse Ox 95 10/03/21 07:32 Discharge Plan Discharge Patient Disposition: Home Condition: Stable Prescriptions: Continued gabapentin 300 mg capsule 600 mg PO BID RF: 0 lisinopril 20 mg tablet 40 mg PO QAM RF: 0 lovastatin 10 mg tablet 10 mg PO QAM RF: 0 Xarelto 20 mg tablet 20 mg PO QAM RF: 0 amlodipine 5 mg tablet 5 mg PO QAM RF: 0 Aleve 220 mg Tablet 440 mg PO BID PRN (Reason: Pain) RF: 0 Discharge Orders: Discharge Order (Routine); Ordered 10/03/21 Ordered By: Angel Houston Referrals: Piero Day [Primary Care Provider] - Angel Houston MD [Physician] - 2 weeks (Nursing: Please call Dr. Houston's office ([phone]) and make an appointment for the patient to be seen in 10-14 days.) Discharge Diet: Advance as tolerated Discharge Activity: Limit activity as instructed Activity Restrictions/Additional Instructions: 1. Discharge to home today. 2. Appointment to see Dr. Houston in 10-14 days as above. 3. Leave Steri-Strip(s) on as discussed, may shower. No lifting over 20 pounds, no repetitive bending or twisting, no strenuous pushing / pulling or other heavy activity. Ambulate regularly. May go up and down steps if needed. Discharge Attestations Time Spent in Discharge Care*: less than 30 min Quality Metrics Clinical Quality Measures During this hospital stay, did patient experience: None Coding Level of Care Code Acute Chg FW DC note Diagnoses Acute appendicitis with appendiceal abscess K35.33
[2021-10-03 10:15] VITALS: PULSE 90; RESP 16; O2SAT 95
== END 2021-10-03 10:16 | disposition home or self-care (01) | DRG 340 ==
LOC: ER 15:36 → OR 15:42 → MEDSURG 17:16
PROVIDERS: Physician Assistant; Admitting Provider Surgery; Emergency Provider Family Medicine; PCP Family Medicine; Visit Provider Surgery
PROC: 0DTJ4ZZ Resection of Appendix, Percutaneous Endoscopic Approach (ICD-10-PCS; CPT 44970; principal; 2021-09-30 16:15)
DX: K35.33 Acute appendicitis with perforation, localized peritonitis, and gangrene, with abscess (principal); K42.9 Umbilical hernia without obstruction or gangrene; I10 Essential (primary) hypertension; I48.91 Unspecified atrial fibrillation; K59.00 Constipation, unspecified; G89.29 Other chronic pain; M54.2 Cervicalgia; M54.9 Dorsalgia, unspecified; E78.00 Pure hypercholesterolemia, unspecified; Z79.01 Long term (current) use of anticoagulants; Z96.641 Presence of right artificial hip joint
CPT/HCPCS: 36415; 74018; 74177; 80048; 80053; 81001; 83690; 85025; 88304; 94640; 96365; 96367; 99285; G0378; J0330; J0690; J1100; J1885; J2405; J2543; J2704; J2710; J3010; J3490; J7614; Q9967; S0030

== ENCOUNTER 2023-05-06 20:57 | Emergency (ER) | payer MEDICARE, OTHER, SELFPAY ==
[2023-05-06 21:30] VITALS: BP 155/74; PULSE 74; RESP 20; TEMP 36.3; O2SAT 97
[2023-05-06 21:40] LABS: Basophils # 0.1 10^3/uL (0.0-0.1); Basophils % 0.4 %; Eosinophils # 0.1 10^3/uL (0.0-0.8); Hematocrit 43.9 % (42.0-52.0); Hemoglobin 14.9 g/dL (11.7-16.6); Lymphocytes # 1.8 10^3/uL (0.8-4.8); Mean Corpuscular HGB Conc 33.9 g/dL (30.0-36.0); Mean Corpuscular Volume 88.5 fl (80-94); Mean Platelet Volume 10.3 fL (7.4-10.4); Monocytes # 1.4 10^3/uL (0.2-0.9); Monocytes % 10.1 %; Neutrophils # 10.25 10^3/uL (1.8-7.7); Neutrophils % 75.1 %; Nucleated Red Blood Cells % 0 %; Platelet Count 148 10^3/cmm (130-400); Red Blood Count 4.96 10^6/uL (4.1-5.3); Red Cell Distribution Width 12.7 % (12.1-15.1); White Blood Count 13.7 10^3/uL (4.0-10.0)
[2023-05-06 21:52] LABS: Alanine Aminotransferase 18 U/L (0-41); Albumin Level 4.3 g/dL (3.5-5.2); Alkaline Phosphatase 24 U/L (40-130); Anion Gap 16.4 (5-19); Aspartate Amino Transferase 18 U/L (0-40); Blood Urea Nitrogen 20 mg/dL (8-23); Calcium 9.2 mg/dL (8.5-10.5); Carbon Dioxide 23 mmol/L (22-29); Chloride 100 mmol/L (98-107); Globulin 2.8 g/dL (1.3-4.6); Glucose 140 mg/dL (65-115); Lipase 27 U/L (13-60); Osmolality Calculated 285 mOsm/kg (285-295); Potassium 4.4 mmol/L (3.5-5.1); Sodium 135 mmol/L (136-145); Total Bilirubin 0.8 mg/dL (0.15-1.2); Total Protein 7.1 g/dL (6.6-8.7)
--- NOTE | 2023-05-06 22:46 | CTR_ITS ---
PROCEDURE INFORMATION: Exam: CT Head Without Contrast Exam date and time: 05/06/2023 11:38 PM Age: 82 years old Clinical indication: Dizziness and other: Vomiting TECHNIQUE: Imaging protocol: Computed tomography of the head without contrast. Sagittal and coronal reformatted images were created and reviewed. Radiation optimization: All CT scans at this facility use at least one of these dose optimization techniques: automated exposure control; mA and/or kV adjustment per patient size (includes targeted exams where dose is matched to clinical indication); or iterative reconstruction. REPORTING DATA: Count of CT and Cardiac NM exams in prior 12 months: This patient has received 0 known CTs and 0 known cardiac nuclear medicine studies in the 12 months prior to the current study. COMPARISON: No relevant prior studies available. RADIATION DOSE METRICS: Total DLP (mGy-cm): 1156.78 FINDINGS: Brain: No acute intracranial hemorrhage. No acute infarct. No intra-axial or extra-axial masses. Dawson-white matter differentiation is preserved. No cerebral edema. No extra-axial fluid collections. No midline shift. No evidence for Chiari 1 malformation. Mild atrophy of the brain parenchyma. Mildly decreased attenuation in the deep white matter, consistent with mild chronic microangiopathic change. Right basal ganglia calcifications. Cerebral ventricles: No hydrocephalus. Paranasal sinuses: Visualized paranasal sinuses are clear. Mastoid air cells: Mastoid air cells are clear bilaterally. Orbital cavities: Globes and lenses, extraocular muscles, and optic nerves are intact bilaterally. No acute intraorbital abnormality. Nasal cavity: Mild right nasal septal deviation. Bones/joints: No acute fracture. Soft tissues: No acute abnormality of the extracranial soft tissues. Vasculature: Atherosclerotic changes in the visualized arteries. CT/CT head wo con* [id number] IMPRESSION: 1. No acute abnormality of the brain. 2. Mild atrophy of the brain parenchyma. 3. Mild chronic white matter microangiopathic change. 4. Incidental/nonacute findings are listed in the report.
--- NOTE | 2023-05-06 22:50 | ED_ITS ---
HPI - Nausea/Vomiting/Diarrhea General: Chief complaint: Nausea/Vomiting/Diarrhea Stated complaint: vomiting/dizziness Time Seen by Provider: 05/06/23 22:33 Source: patient Mode of arrival: ambulatory Limitations: no limitations History of Present Illness: 82-year-old male states he has had a ball game tonight states that he is walked back to the car started to feel lightheaded got very nauseous. States that he just vomited twice he felt very dizzy and felt like he may pass out he states he may have got overheated again he states that since being inside he feels much improved he is able ambulate here without any difficulty denies any pain anywhere. Associated nausea: Yes Associated symtoms: Reports dizziness and nausea; Denies chest pain or headache(s) Review of Systems Const: Denies: fever(s) or chills Eyes: Denies: blurry vision or eye discomfort ENMT: Denies: throat pain or dental pain Card: Denies: chest pain Resp: Denies: dyspnea GI: Reports: nausea, vomiting and diarrhea; Denies: abdominal pain Musc: Denies: neck pain or back pain Skin/Breast: Denies: rash Neuro: Reports: dizziness; Denies: headache(s) PFSH ED PFSH: Medical History Atrial fibrillation Chronic pain Neck / back Hypercholesterolemia Hypertension Sleep apnea uses CPAP Surgical History History of right hip replacement Previous back surgery Status post knee surgery Bilateral Social History Smoking and tobacco status: never smoked Second hand smoke exposure: No Alcohol intake: never Desire information about alcohol rehabilitation?: No Substance/Drug Use: never Desire information about substance/drug rehabilitation?: No Physical Exam Const: COMMON NORMALS: no acute distress, patient oriented x3 and healthy appearing HENMT: COMMON NORMALS: normocephalic and atraumatic HEAD & SCALP: normocephalic and atraumatic Eye: COMMON NORMALS: Equal, round and reactive pupils present and EOMs intact bilaterally PUPIL: Yes Equal, round and reactive pupils present OTHER: no nystagmus Neck/C-Spine: COMMON NORMALS: full ROM and supple Chest: COMMONS NORMALS: normal inspection of the chest and normal palpation of entire chest wall Resp: COMMON NORMALS: normal respiratory effort, No retractions, No use of accessory muscles and clear to auscultation bilaterally AUSCULTATION: clear t o auscultation bilaterally Cardio: COMMON NORMALS: regular rate, regular rhythm and No murmurs present (Cardio) RATE: regular rate RHYTHM: regular rhythm GI: COMMON NORMALS: Normal to inspection, nondistended, normoactive bowel sounds present, Soft to palpation, non-tender and no masses PALPATION: Yes Soft to palpation Extremity: COMMON NORMALS: normal to inspection and full ROM Neuro: COMMON NORMALS: patient oriented x3, moves all extremities and no focal motor deficits CRANIAL NERVES: Yes CN normal except as noted COORDINATION/BALANCE: tandem gait normal and does not sway with eyes open SPEECH: speech normal GAIT: Yes Normal gait present MOTOR EXAM: 5/5 motor strength present throughout COORDINATION: tandem gait normal and does not sway with eyes open Psych: COMMON NORMALS: mental status grossly normal, Normal thought process present and cooperative THOUGHT PROCESS: Normal thought process present Skin: COMMON NORMALS: no rashes or lesions noted and no wounds GENERAL SKIN EXAM: no rashes or lesions noted Course Vital Signs: Vital signs: Vital Signs Temperature 97.4 F L 05/06/23 21:30 Pulse Rate 74 05/06/23 21:30 Respiratory Rate 20 H 05/06/23 21:30 Blood Pressure 155/74 05/06/23 21:30 Pulse Oximetry 97 05/06/23 21:30 Oxygen Delivery Me thod Room Air 05/06/23 21:30 MDM - Nausea/Vomiting/Diarrhea Medical Decision Making Patient presents here with dizziness and vomiting is likely from heat exposure being the game he feels much improved here he has no signs of a stroke. He is able to ambulate here without any difficulty we will prescribe him Zofran he is to stay out of heat over the next 3 to 5 days he is to follow-up his PCP and return if worsening he understands agrees to plan. Medical Records I reviewed the patient's medical records. Lab Data I reviewed the patient's lab results. 05/06/23 21:26 05/06/23 21:[address] 05/06/23 22:46 IMPRESSION: 1. No acute abnormality of the brain. 2. Mild atrophy of the brain parenchyma. 3. Mild chronic white matter microangiopathic change. 4. Incidental/nonacute findings are listed in the report. Laboratory Results WBC 13.7 10^3/uL (4.0-10.0) H 05/06/23 21: RBC 4.96 10^6/uL (4.1-5.3) 05/06/23 21: Hgb 14.9 g/dL (11.7-16.6) 05/06/23 21: Hct 43.9 % (42.0-52.0) 05/06/23 21: MCV 88.5 fl (80-94) 05/06/23 21: MCH 30.0 pg (28.0-34.0) 05/06/23: MCHC 33.9 g/dL (30.0-36.0) 05/06/23 21: RDW 12.7 % (12.1-15.1) 05/06/23 21: Plt Count 148 10^3/cmm (130-400) 05/06/23 21: MPV 10.3 fL (7.4-10.4) 05/06/23 21: Neut % (Auto) 75.1 % 05/06/23 21: Lymph % (Auto) 13.0 % 05/06/23 21: [place] % (Auto) 10.1 % 05/06/23 21: Eos % (Auto) 1.0 % 05/06/23 21: Baso % (Auto) 0.4 % 05/06/23 21: Neut # (Auto) 10.25 10^3/uL (1.8-7.7) H 05/06/23 21: Lymph # (Auto) 1.8 10^3/uL (0.8-4.8) 05/06/23 21: [place] # (Auto) 1.4 10^3/uL (0.2-0.9) H 05/06/23 21: Eos # (Auto) 0.1 10^3/uL (0.0-0.8) 05/06/23 21: Baso # (Auto) 0.1 10^3/uL (0.0-0.1) 05/06/23:26 Nucleated RBC % (auto) 0 % 05/06/23 21:26 Nucleated RBCs # 0.0 /100WBC 05/06/23 21:26 Sodium 135 mmol/L (136-145) L 05/06/23 21:26 Potassium 4.4 mmol/L (3.5-5.1) 05/06/23 21:26 Chloride 100 mmol/L (98-107) 05/06/23 21:26 Carbon Dioxide 23 mmol/L (22-29) 05/06/23 21:26 Anion Gap 16.4 (5-19) 05/06/23 21:26 BUN 20 mg/dL (8-23) 05/06/23 21:26 Creatinine 1.0 mg/dL (0.7-1.2) 05/06/23 21:26 GFR Calculation Not Reportable 05/06/23 21:26 Glucose 140 mg/dL (65-115) H 05/06/23 21:26 Calculated Osmolality 285 mOsm/kg (285-295) 05/06/23 21:26 Calcium 9.2 mg/dL (8.5-10.5) 05/06/23 21:26 Total Bilirubin 0.8 mg/dL (0.15-1.2) 05/06/23 21:26 AST 18 U/L (0-40) 05/06/23 21:26 ALT 18 U/L (0-41) 05/06/23 21:26 Alkaline Phosphatase 24 U/L (40-130) L 05/06/23 21:26 Total Protein 7.1 g/dL (6.6-8.7) 05/06/23 21:26 Albumin 4.3 g/dL (3.5-5.2) 05/06/23 21:26 Globulin 2.8 g/dL (1.3-4.6) 05/06/23 21:26 Lipase 27 U/L (13-60) 05/06/23 21:26 EKG Data EKG 1: I personally reviewed and interpreted this EKG as follows: EKG interpretation date: 05/06/23 EKG interpretation time: 23:02 Interpretation: afib hr [address] or t wave abnormalities qrs 126 qtc 442 Discharge Plan Discharge Patient Disposition: Home Clinical Impression: Vomiting, Dizziness Condition: Stable Prescriptions: New ondansetron 4 mg tablet,disintegrating 4 mg PO Q6H PRN (Reason: nausea and vomiting) Qty: 14 0RF No Action gabapentin 300 mg capsule 600 mg PO BID lisinopril 20 mg tablet 40 mg PO QAM lovastatin 10 mg tablet 10 mg PO QAM Xarelto 20 mg tablet 20 mg PO QAM amlodipine 5 mg tablet 5 mg PO QAM prednisone 20 mg tablet 60 mg PO DAILY 5 Days Qty: 15 0RF albuterol sulfate 90 mcg/actuation HFA aerosol inhaler 2 puff inhalation Q6H PRN (Reason: shortness of breath or wheezing) Qty: 8.5 0RF amoxicillin-pot clavulanate 875-125 mg tablet 1 tab PO BID 7 Days Qty: 14 0RF jwszhlataalujif-othpavpey-IF [Bromfed DM] 2-30-10 mg/5 mL syrup 5 ml PO Q6H PRN (Reason: cold symptoms) Qty: 118 0RF fluconazole [Diflucan] 150 mg tablet 150 mg PO .weekly 56 Days Qty: 8 0RF Aleve 220 mg Tablet 440 mg PO BID PRN (Reason: Pain) Discharge Orders: Discharge ED (Routine); Ordered 05/07/23 Ordered By: Jami Canales Referrals: Piero Day [Primary Care Provider] - 1-3 days Discharge Diet: Advance as tolerated Discharge Activity: Resume usual activity Patient Instructions: Acute Nausea and Vomiting (ED), Dizziness (ED) Coding Level of Care Code ED Living Supervisor for Shira De Anda
[2023-05-06] MEDS: meclizine 25 mg tablet 50 MG PO (22:58)
[2023-05-06] MEDS: sodium chloride 0.9% 1,000 ML 999 ML IV (22:58)
[2023-05-06] MEDS: ondansetron 2 mg/ML SDV 2 mL 4 MG IVP (22:58)
--- NOTE | 2023-05-06 23:02 | ECG_ITS ---
[facility] Test Date: 2023-05-06 Pat Name: Wesly Eldridge Department: Room: Gender: Male Telehealth Case Manager: : 1940 Requested By: Jami Canales Order Number: [id number] Leanne MD: Isaiah Reese M.D. Measurements Intervals [place] Rate: 76 P: 0 PA: 0 QRS: -63 QRSD: 126 T: 69 QT: 411 QTc: 464 Interpretive Statements ATRIAL FIBRILLATION LEFT AXIS DEVIATION [QRS AXIS < -30] RIGHT BUNDLE BRANCH BLOCK [120+ ms QRS DURATION, UPRIGHT V1, 40+ ms S IN I/aVL/V4/V5/V6] No previous ECG available for comparison Electronically Signed On 05-07-2023 14:47:04 CDT by Isaiah Reese M.D. [email or web address]
[2023-05-07 00:34] VITALS: BP 141/83; PULSE 75; RESP 17; O2SAT 95
== END 2023-05-07 00:38 | disposition home or self-care (01) ==
PROVIDERS: Emergency Provider Emergency Medicine; PCP Family Medicine
DX: R11.10 Vomiting, unspecified (principal); R42 Dizziness and giddiness
CPT/HCPCS: 36415; 70450; 80053; 83690; 85025; 93005; 96374; 99285; J2405; J7030; J8597

== ENCOUNTER → 2023-07-16 15:57 | Outpatient (BNVA) | payer MEDICARE, OTHER, SELFPAY | PROVIDERS: PCP Family Medicine; Visit Provider Nurse Practitioner Family | DX: Z20.822 Contact with and (suspected) exposure to COVID-19 (principal); U07.1 COVID-19 | CPT/HCPCS: 87426 ==